=== PATIENT | male | born 1975 | race Caucasian/White ===

== ENCOUNTER 2017-07-06 13:29 | Emergency (ER) | payer OTHER ==
[~2017-07-06] VITALS: Ht 177.8 cm; Wt 102.1 kg
[~2017-07-06 13:29] MED LIST: HYDACE5 PO; IBUP800 PO; NAPR550 PO; RXHYDACE PO
[2017-07-06] MEDS ORDERED: PENVK500 PO (14:37)
[2017-07-06] MEDS ORDERED: TRAM50 PO (14:38)
[2017-07-06] MEDS ORDERED: Cleocin HCl300 MG PO (14:41)
[2017-07-06] MEDS ORDERED: IBUP800 PO (14:41)
[2017-07-06] MEDS ORDERED: PERIDEX15 ML MM (14:41)
== END 2017-07-06 14:46 | disposition home or self-care (01) ==
LOC: ER 13:29
DX: K08.89 Other specified disorders of teeth and supporting structures (principal); I10 Essential (primary) hypertension; F17.200 Nicotine dependence, unspecified, uncomplicated; Z88.5 Allergy status to narcotic agent; Z88.8 Allergy status to other drugs, medicaments and biological substances; Z79.2 Long term (current) use of antibiotics
CPT/HCPCS: 99283

== ENCOUNTER 2018-12-14 16:27 | Emergency (ER) | payer MEDICARE, OTHER ==
[~2018-12-14] VITALS: Ht 177.8 cm; Wt 95.2 kg
[~2018-12-14 16:27] MED LIST changes: +Cleocin HCl300 MG PO; +PENVK500 PO; +PERIDEX15 ML MM; +TRAM50 PO
[2018-12-14 16:56] LABS: BASOPHILS ABSOLUTE AUTO 0.05 K/mm3 (0.00-0.23); BASOPHILS PERCENT AUTO 0 % (0-2); EOSINOPHILS ABSOLUTE AUTO 0.13 K/mm3 (0.00-0.68); EOSINOPHILS PERCENT AUTO 1 % (0-6); Hematocrit 48.3 % (37.0-53.0); Hemoglobin 16.2 g/dL (13.5-17.5); IMMATURE GRAN ABSOLUTE AUTO 0.11 K/mm3 (0.00-0.10); IMMATURE GRAN PERCENT AUTO 1 % (0-1); LYMPHOCYTES ABSOLUTE AUTO 1.57 K/mm3 (0.84-5.20); LYMPHOCYTES PERCENT AUTO 7 % (21-46); MONOCYTES ABSOLUTE AUTO 1.86 K/mm3 (0.16-1.47); MONOCYTES PERCENT AUTO 8 % (4-13); Mean Corpuscular HGB Conc 33.5 g/dL (31.5-36.5); Mean Corpuscular Volume 93 fL (80-100); Mean Platelet Volume 10.4 fL (9.1-12.4); NEUTROPHILS ABSOLUTE AUTO 18.55 K/mm3 (1.96-9.15); NEUTROPHILS PERCENT AUTO 83 % (41-73); Platelet Count 227 K/mm3 (150-400); RDW Coefficient Variation 12.9 % (11.7-14.2); Red Blood Cell Count 5.22 M/mm3 (4.30-5.90); White Blood Cell Count 22.27 K/mm3 (4.00-11.30)
[2018-12-14 17:22] LABS: Alanine Aminotransfer (ALT/SGP 38 U/L (12-78); Albumin/Globulin Ratio 1.8 (0.8-1.8); Alk Phos 83 U/L (50-136); Anion Gap 9 mmol/L (6-16); Aspartate Aminotrans (AST/SGOT 23 U/L (12-37); Blood Urea Nitrogen 11 mg/dL (8-24); Bun/Creatinine Ratio 9.1 (12.0-20.0); CO2, Blood 24 mmol/L (21-32); Calcium, Blood 9.3 mg/dL (8.5-10.1); Chloride, Blood 105 mmol/L (98-108); Creatinine, Blood 1.21 mg/dL (0.60-1.20); Globulin, Blood 2.8 g/dL (2.2-4.0); Glomerular Filtration Rate >60 (60-); Glucose, Blood 113 mg/dL (70-99); Potassium, Blood 3.6 mmol/L (3.5-5.5); Sodium, Blood 138 mmol/L (136-145); Total Protein, Blood 7.8 g/dL (6.4-8.2)
[2018-12-14 17:39] LABS: Source, Urine Clean Catch
[2018-12-14 17:43] LABS: Bilirubin, Urine Neg (Neg); Blood, Urine 4+ (Neg); Glucose Qualitative, Urine Neg (Neg); Ketones, Urine 3+ (Neg); Leukocyte Esterase, Urine 1+ (Neg); Nitrite, Urine Neg (Neg); Protein, Urine 2+ (Neg); Specific Gravity, Urine 1.015 (1.003-1.022); Urobilinogen, Urine NORM (Normal)
[2018-12-14 17:49] LABS: Appearance, Urine Clear (Clear); Color, Urine Yellow (P-Yellow)
[2018-12-14 17:50] LABS: Red Blood Cells, Urine TNTC /hpf (0-2); Squamous Epithelial Cells Not Seen /hpf (Few)
[2018-12-14 17:51] LABS: Bacteria Few /hpf
[2018-12-14] MEDS ORDERED: Zocor20 MG PO (19:33)
[2018-12-14] MEDS ORDERED: BACL10 PO (19:33)
[2018-12-14] MEDS ORDERED: AMIT25 PO (19:34)
[2018-12-14] MEDS ORDERED: LOSARTAN-HCTZ1 EACH PO (19:34)
[2018-12-14] MEDS ORDERED: TECFIDERA240 MG PO (19:35)
[2018-12-14] MEDS ORDERED: CHOL10002 PO (19:35)
[2018-12-14] MEDS ORDERED: Aspir 8181 MG PO (19:35)
[2018-12-14] MEDS ORDERED: ZINC15 PO (19:36)
[2018-12-14] MEDS ORDERED: Norco 5-325 Ta1 EACH PO (19:58)
[2018-12-14] MEDS ORDERED: ONDA4ODT MM ×2 (19:58→20:06)
[2018-12-14] MEDS ORDERED: Bactrim Ds Tab1 EACH PO ×2 (19:58→20:06)
[2018-12-14] MEDS ORDERED: Ultram50 MG PO (20:06)
== END 2018-12-14 20:58 | disposition home or self-care (01) ==
LOC: ER 16:27
PROVIDERS: Emergency Medicine
DX: N13.2 Hydronephrosis with renal and ureteral calculous obstruction (principal); Z88.5 Allergy status to narcotic agent; Z88.8 Allergy status to other drugs, medicaments and biological substances; Z79.899 Other long term (current) drug therapy; I10 Essential (primary) hypertension; E78.00 Pure hypercholesterolemia, unspecified; F17.200 Nicotine dependence, unspecified, uncomplicated
CPT/HCPCS: 36415; 74176; 80053; 81001; 83690; 85025; 87086; 96361; 96365; 96375; 99284-25; J0696; J1885; J2405; J3010; J7030